=== PATIENT | male | born 1975 | race Caucasian/White ===

== ENCOUNTER 2024-12-02 10:55 | Emergency (ER) | payer OTHER ==
[~2024-12-02] VITALS: Ht 177.8 cm; Wt 90.7 kg
[2024-12-02 13:43] LABS: Chlamydia Trachomatis Urine NOT DETECTED (NOT DETECT); Neisseria Gonorrhoea Urine NOT DETECTED (NOT DETECT)
== END 2024-12-02 14:39 | disposition home or self-care (01) ==
LOC: ER 10:55
PROVIDERS: Physician Assistant
DX: K40.90 Unilateral inguinal hernia, without obstruction or gangrene, not specified as recurrent (principal); Z11.3 Encounter for screening for infections with a predominantly sexual mode of transmission
CPT/HCPCS: 76857; 87491; 87591; 99283-25